=== PATIENT | male | born 1940 | race Caucasian/White ===

== ENCOUNTER 2016-06-21 08:47 | Observation (INO) | payer MEDICARE ==
[2016-06-21 09:20] LABS: ABSOLUTE LYMPHOCYTES (AUTO) 0.9 10^3/uL (0.5-4.7); ABSOLUTE MONOCYTES (AUTO) 0.9 10^3/uL (0.1-1.4); ABSOLUTE NEUT (AUTO) 11.9 10^3/uL (1.7-8.2); BASOPHILS % (AUTO) 0.2 % (0-2); HEMATOCRIT 40.6 % (37.9-51.0); HEMOGLOBIN 14.2 g/dL (13.5-17.0); LYMPHOCYTES % (AUTO) 6.4 % (13-45); MEAN CORPUSCULAR HEMOGLOBIN 29.2 pg (27.0-33.4); MEAN CORPUSCULAR HGB CONC 34.9 g/dL (32.0-36.0); MEAN CORPUSCULAR VOLUME 84 fl (80-97); MONOCYTES % (AUTO) 6.3 % (3-13); RED BLOOD COUNT 4.85 10^6/uL (4.35-5.55); RED CELL DISTRIBUTION WIDTH 13.5 % (11.5-14.0); SEGMENTED NEUTROPHILS % (AUTO) 87.1 % (42-78); WHITE BLOOD COUNT 13.7 10^3/uL (4.0-10.5)
[2016-06-21 09:22] LABS: VENOUS BLOOD BASE EXCESS -2.2 mmol/L; VENOUS BLOOD HCO3 20.9 mmol/L (20-32); VENOUS BLOOD PCO2 31.6 mmHg (35-63); VENOUS BLOOD PH 7.44 (7.30-7.42)
[2016-06-21 09:25] LABS: PROTHROMBIN TIME 15.1 SEC (11.4-15.4)
[2016-06-21 09:41] LABS: ALANINE AMINOTRANSFERASE 28 U/L (21-72); ALBUMIN 3.9 g/dL (3.5-5.0); ALKALINE PHOSPHATASE 88 U/L (38-126); ANION GAP 16 (5-19); ASPARTATE AMINO TRANSFERASE 37 U/L (17-59); BILIRUBIN,DIRECT 0.5 mg/dL (0.0-0.4); BILIRUBIN,TOTAL 2.5 mg/dL (0.2-1.3); BLOOD UREA NITROGEN 20 mg/dL (7-20); CALCIUM 8.8 mg/dL (8.4-10.2); CARBON DIOXIDE 20 mmol/L (22-30); CHLORIDE 97 mmol/L (98-107); CREATININE RESULT 1.16 mg/dL (0.52-1.25); GLUCOSE 156 mg/dL (75-110); LIPASE 26.3 U/L (23-300); MAGNESIUM 1.6 mg/dL (1.6-2.3); POTASSIUM 3.4 mmol/L (3.6-5.0); SODIUM 132.8 mmol/L (137-145); TOTAL PROTEIN 6.5 g/dL (6.3-8.2)
[2016-06-21] MEDS ORDERED: NORMAL SALINE 1000 ML 1,000 ML IV ONE (10:35)
[2016-06-21 10:59] LABS: APPEARANCE,URINE CLEAR; BILIRUBIN,URINE NEGATIVE (NEGATIVE); GLUCOSE, URINE NEGATIVE (NEGATIVE); KETONES,URINE 20 mg/dL (NEGATIVE); LEUKOCYTE ESTERASE,URINE NEGATIVE (NEGATIVE); NITRITE,URINE NEGATIVE (NEGATIVE); PROTEIN,URINE NEGATIVE (NEGATIVE); URINE SPECIFIC GRAVITY 1.005; UROBILINOGEN,URINE NEGATIVE mg/dL (<2.0)
[2016-06-21] MEDS ORDERED: IPRATROPIUM/ALBUTEROL 0.5-2.5 MG/3 ML AMPUL NEB ONE (11:03)
--- NOTE | 2016-06-21 12:23 | ER Document Report ---
ED General - General Chief Complaint: Shortness Of Breath Stated Complaint: SORTNESS OF BREATH TRAVEL OUTSIDE OF THE [place] IN LAST 30 DAYS: No - HPI Patient complains to provider of: fever shortness of breath Notes: Patient coming in for evaluation of fever shortness of breath. Patient has history COPD/asthma. States ongoing for last 4 days. Patient states he did not receive a flu shot this year. Patient also states mild nausea. Patient's tried breathing treatments at home however today worse patient denies any recent travel patient does have a fever and was given Tylenol via EMS. Upon my evaluation patient is diaphoretic having difficulty breathing however states that bring treatments given by EMS have improved his breathing status. - Related Data Allergies/Adverse Reactions: codeine [Codeine] Allergy (Verified 04/13/14 16:50) Past Medical History - Social History Smoking Status: Former Smoker Frequency of alcohol use: None Drug Abuse: None Family History: Reviewed & Not Pertinent Pulmonary Medical History: Reports: Hx Asthma GI Medical History: Reports: Hx Gastroesophageal Reflux Disease Past Surgical History: Reports: Hx Bowel Surgery - hemicolectomy, Hx Cholecystectomy - Immunizations Hx Diphtheria, Pertussis, Tetanus Vaccination: Yes Hx Pneumococcal Vaccination: 11/25/08 Review of Systems - Review of Systems Constitutional: Fever EENT: No symptoms reported Cardiovascular: No symptoms reported Respiratory: Cough, Wheezing Gastrointestinal: No symptoms reported Genitourinary: No symptoms reported Male Genitourinary: No symptoms reported Musculoskeletal: No symptoms reported Skin: No symptoms reported Hematologic/Lymphatic: No symptoms reported Neurological/Psychological: No symptoms reported -: Yes All other systems reviewed and negative Physical Exam - Vital signs Vitals: Temp Pulse Resp BP Pulse Ox 98.3 F 99 20 139/62 H 95 06/21/16 08:58 06/21/16 08:58 06/21/16 08:58 06/21/16 08:58 06/21/16 08:58 Interpretation: Febrile - General General appearance: Appears well, Alert - HEENT Head: Normocephalic, Atraumatic Eyes: Normal Pupils: PERRL - Respiratory Respiratory status: No respiratory distress Chest status: Nontender Breath sounds: Rhonchi, Wheezing Chest palpation: Normal - Cardiovascular Rhythm: Regular Heart sounds: Normal auscultation Murmur: No - Abdominal Inspection: Normal Distension: No distension Bowel sounds: Normal Tenderness: Nontender Organomegaly: No organomegaly - Back Back: Normal, Nontender - Extremities General upper extremity: Normal inspection, Nontender, Normal color, Normal ROM , Normal temperature General lower extremity: Normal inspection, Nontender, Normal color, Normal ROM , Normal temperature, Normal weight bearing. No: Elizabeth's sign - Neurological Neuro grossly intact: Yes Cognition: Normal Orientation: AAOx4 [place] Coma Scale Eye Opening: Spontaneous [place] Coma Scale Verbal: Oriented [place] Coma Scale Motor: Obeys Commands [place] Coma Scale Total: 15 Speech: Normal Motor strength normal: LUE, RUE, LLE, RLE Sensory: Normal - Psychological Associated symptoms: Normal affect, Normal mood - Skin Skin Temperature: Warm Skin Moisture: Dry Skin Color: Normal Course - Re-evaluation Re-evalutation: 06/21/16 15:01 Patient did improve however after ambulating patient still same short breaths still has coarse lung sounds is to connect therefore decision was made to admit the patient with asthma exacerbation with influenza B. 06/21/16 15:01 - Vital Signs Vital signs: Temp Pulse Resp BP Pulse Ox 98.1 F 84 20 129/57 H 97 06/21/16 14:33 06/21/16 14:33 06/21/16 14:33 06/21/16 14:33 06/21/16 14:33 - Laboratory Result Diagrams: 06/21/16 09:02 06/21/16 09:02 Laboratory results interpreted by me: 06/21/16 06/21/16 06/21/16 09:02 09:02 09:02 WBC 13.7 H Seg Neutrophils % 87.1 H Lymphocytes % 6.4 L Absolute Neutrophils 11.9 H VBG pH 7.44 H VBG pCO2 31.6 L Sodium 132.8 L Potassium 3.4 L Chloride 97 L Carbon Dioxide 20 L Glucose 156 H Total Bilirubin 2.5 H Direct Bilirubin 0.5 H Urine Ketones Urine Blood 06/21/16 10:40 WBC Seg Neutrophils % Lymphocytes % Absolute Neutrophils VBG pH VBG pCO2 Sodium Potassium Chloride Carbon Dioxide Glucose Total Bilirubin Direct Bilirubin Urine Ketones 20 H Urine Blood SMALL H Discharge - Discharge Clinical Impression: SOB (shortness of breath), COPD with acute exacerbation, Influenza due to influenza virus, type B Admitting Provider: Hospitalist - melissa/andrew Unit Admitted: Telemetry
[2016-06-21] MEDS ORDERED: ACETAMINOPHEN 325 MG TABLET PO PRN (12:26)
[2016-06-21] MEDS ORDERED: ZOLPIDEM TARTRATE 5 MG TABLET PO PRN (12:26)
[2016-06-21] MEDS ORDERED: ONDANSETRON HCL INJ/PF 4 MG/2 ML SDV IV PRN (12:26)
[2016-06-21] MEDS ORDERED: TRAMADOL HCL 50 MG TABLET PO PRN (12:33)
--- NOTE | 2016-06-21 13:31 | PDOC H&P ---
History of Present Illness Patient complains of: Shortness of breath, cough and fever over the last 4 days History of Present Illness: LINDA GAYLE III is a 75 year old male with past medical history COPD, asthma and GERD. Presents to [facility]'s emergency department this morning with complaints of increasing shortness of breath, cough, and fever up to 102. He states his symptoms began 4 days ago and has worsened over time. He has been using his rescue inhaler frequently and taking Mucinex over- the-counter. He denies any chest pain, palpitations or dyspnea. He does have generalized arthralgias and myalgias. He denies any nausea vomiting or abdominal pain. No other family members are sick at the present time. He has not been traveling outside the area. Past Medical History Cardiac Medical History: Reports: None Pulmonary Medical History: Reports: Asthma, Chronic Obstructive Pulmonary Disease (COPD), Pneumonia EENT Medical History: Reports: None Neurological Medical History: Reports: None Endocrine Medical History: Reports: None Renal/ Medical History: Reports: None Malignancy Medical History: Reports: None GI Medical History: Reports: None, Gastroesophageal Reflux Disease Musculoskeltal Medical History: Reports: None Skin Medical History: Reports: None Psychiatric Medical History: Reports: None Traumatic Medical History: Reports: None Hematology: Reports: None Infectious Medical History: Reports: None Past Surgical History Past Surgical History: Reports: Cholecystectomy Social History Information Source: Patient Lives with: Alone Smoking Status: Former Smoker Last Time Smoked: 40 years ago Frequency of Alcohol Use: Rare Hx Recreational Drug Use: No Hx Prescription Drug Abuse: No - Advance Directive Resuscitation Status: Full Code Surrogate healthcare decision maker:: daughter, Family History Family History: CAD, Hypertension Parental Family History Reviewed: Yes Children Family History Reviewed: Yes Sibling(s) Family History Reviewed.: Yes Medication/Allergy Home Medications: Asprin 81 mg PO DAILY 04/24/12 Asthmanex 220 mg IH DAILY 04/24/12 Formula Damien Plus 15 drop PO DAILY 04/24/12 Ginkgo Biloba 120 mg PO DAILY 04/24/12 Multivitamin [Multiple Vitamins] 1 tab PO DAILY 04/24/12 Natural Vitality 1 tab PO DAILY 04/24/12 [place] 3 1 tab PO DAILY 04/24/12 Omeprazole [Prilosec 40 mg Capsule] 40 mg PO DAILY 04/24/12 Servent 50 mg IH DAILY 04/24/12 Vit B6 100 mg PO DAILY 04/24/12 Vit D3 2,000 units PO DAILY 04/24/12 Vitamin [id number] Factor [Martinic] 1 each PO DAILY 04/24/12 Esomeprazole Mag Trihydrate [Nexium] 40 mg PO DAILY #30 cap 04/13/14 Tramadol HCl [Ultram] 50 mg PO Q6 #30 tablet 04/13/14 Allergies/Adverse Reactions: codeine [Codeine] Allergy (Verified 04/13/14 16:50) Review of Systems Constitutional: PRESENT: anorexia, chills, fever(s), headache(s) Eyes: PRESENT: as per HPI Ears: ABSENT: hearing changes Cardiovascular: ABSENT: chest pain, dyspnea on exertion, edema, orthropnea, palpitations Respiratory: PRESENT: cough, dyspnea, sputum Gastrointestinal: ABSENT: abdominal pain, constipation, diarrhea, hematemesis, hematochezia, nausea, vomiting Genitourinary: ABSENT: dysuria, hematuria Musculoskeletal: ABSENT: joint swelling Integumentary: ABSENT: rash, wounds Neurological: ABSENT: abnormal gait, abnormal speech, confusion, dizziness, focal weakness, syncope Psychiatric: ABSENT: anxiety, depression, homidical ideation, suicidal ideation Endocrine: ABSENT: cold intolerance, heat intolerance, polydipsia, polyuria Hematologic/Lymphatic: ABSENT: easy bleeding, easy bruising Physical Exam Vital Signs: Temp Pulse Resp BP Pulse Ox 98.0 F 99 21 H 123/66 95 06/21/16 11:54 06/21/16 08:58 06/21/16 12:00 06/21/16 12:00 06/21/16 12:00 General appearance: PRESENT: no acute distress, well-developed, well-nourished Head exam: PRESENT: atraumatic, normocephalic Eye exam: PRESENT: conjunctiva pink, EOMI, PERRLA. ABSENT: scleral icterus Ear exam: PRESENT: normal external ear exam Mouth exam: PRESENT: moist, tongue midline Neck exam: ABSENT: carotid bruit, JVD, lymphadenopathy, thyromegaly Respiratory exam: PRESENT: rhonchi, symmetrical, unlabored, wheezes Cardiovascular exam: PRESENT: RRR. ABSENT: diastolic murmur, rubs, systolic murmur Pulses: PRESENT: normal dorsalis pedis pul Vascular exam: PRESENT: normal capillary refill GI/Abdominal exam: PRESENT: normal bowel sounds, soft. ABSENT: distended, guarding, mass, organolmegaly, rebound, tenderness Rectal exam: PRESENT: deferred Extremities exam: PRESENT: full ROM. ABSENT: calf tenderness, clubbing, pedal edema Musculoskeletal exam: PRESENT: ambulatory, full ROM, normal inspection, tenderness Neurological exam: PRESENT: alert, awake, oriented to person, oriented to place , oriented to time, oriented to situation, CN II-XII grossly intact. ABSENT: motor sensory deficit Psychiatric exam: PRESENT: appropriate affect, normal mood. ABSENT: homicidal ideation, suicidal ideation Skin exam: PRESENT: dry, intact, warm. ABSENT: cyanosis, rash Results Laboratory Results: 06/21/16 09:02 06/21/16 09:02 06/21/16 06/21/16 06/21/16 09:02 09:02 09:02 WBC 13.7 H RBC 4.85 Hgb 14.2 Hct 40.6 MCV 84 MCH 29.2 MCHC 34.9 RDW 13.5 Plt Count 167 Seg Neutrophils % 87.1 H Lymphocytes % 6.4 L Monocytes % 6.3 Eosinophils % 0.0 Basophils % 0.2 Absolute Neutrophils 11.9 H Absolute Lymphocytes 0.9 Absolute Monocytes 0.9 Absolute Eosinophils 0.0 Absolute Basophils 0.0 VBG pH VBG pCO2 VBG HCO3 VBG Base Excess Sodium 132.8 L Potassium 3.4 L Chloride 97 L Carbon Dioxide 20 L Anion Gap 16 BUN 20 Creatinine 1.16 Est GFR ( Amer) > 60 Est GFR (Non-Af Amer) > 60 Glucose 156 H Lactic Acid 1.0 Calcium 8.8 Magnesium 1.6 Total Bilirubin 2.5 H AST 37 ALT 28 Alkaline Phosphatase 88 Total Protein 6.5 Albumin 3.9 Lipase 26.3 Urine Color Urine Appearance Urine pH Ur Specific [place] Urine Protein Urine Glucose (UA) Urine Ketones Urine Blood Urine Nitrite Ur Leukocyte Esterase Urine WBC (Auto) Urine RBC (Auto) 06/21/16 06/21/16 09:02 10:40 WBC RBC Hgb Hct MCV MCH MCHC RDW Plt Count Seg Neutrophils % Lymphocytes % Monocytes % Eosinophils % Basophils % Absolute Neutrophils Absolute Lymphocytes Absolute Monocytes Absolute Eosinophils Absolute Basophils VBG pH 7.44 H VBG pCO2 31.6 L VBG HCO3 20.9 VBG Base Excess -2.2 Sodium Potassium Chloride Carbon Dioxide Anion Gap BUN Creatinine Est GFR ( Amer) Est GFR (Non-Af Amer) Glucose Lactic Acid Calcium Magnesium Total Bilirubin AST ALT Alkaline Phosphatase Total Protein Albumin Lipase Urine Color YELLOW Urine Appearance CLEAR Urine pH 6.0 Ur Specific [place] 1.005 Urine Protein NEGATIVE Urine Glucose (UA) NEGATIVE Urine Ketones 20 H Urine Blood SMALL H Urine Nitrite NEGATIVE Ur Leukocyte Esterase NEGATIVE Urine WBC (Auto) 1 Urine RBC (Auto) 0 06/21/16 09:02 Troponin I 0.033 Impressions: Chest X-Ray 06/21/16 09:00 IMPRESSION: NO ACUTE RADIOGRAPHIC FINDING IN THE CHEST. Assessment & Plan - Diagnosis (1) Acute chronic obstructive pulmonary disease with respiratory distress Is this a current diagnosis for this admission?: YesPlan: Patient tested positive for influenza B and his symptoms began 4 days ago. Oxygen as needed. Tamiflu is not indicated. Chest x-ray shows no sign of pneumonia. We will continue home inhalers as well as DuoNeb nebulizer every 6 hours and prn, mucinex and IV steroids. (2) Influenza due to influenza virus, type B Is this a current diagnosis for this admission?: YesPlan: Symptomatic management, Tamiflu is not indicated due to length of patient's symptoms (3) SOB (shortness of breath) Is this a current diagnosis for this admission?: YesPlan: Oxygen, IV steroids and nebulizer treatments - Time Time Spent: 50 to 70 Minutes Critical Time spent with patient: 25-34 minutes Medications reviewed and adjusted accordingly: Yes Anticipated discharge: Home
--- NOTE | 2016-06-21 14:25 | EKG REPORT ---
SEVERITY:- OTHERWISE NORMAL ECG - SINUS RHYTHM ATRIAL PREMATURE COMPLEX : Confirmed by: Carissa Carias 21-Jun-2016 14:24:43
[2016-06-21] MEDS: METHYLPREDNISOLONE INJ 125 MG/2 ML SDV IV SCH ×2 (14:43→21:23)
[2016-06-21] MEDS: IPRATROPIUM/ALBUTEROL 0.5-2.5 MG/3 ML AMPUL NEB SCH ×2 (16:52→23:27)
[2016-06-21] MEDS: LANSOPRAZOLE 30 MG TAB.RAP.DR PO SCH (17:21)
[2016-06-21] MEDS: GUAIFENESIN 600 MG TABLET.SA PO SCH (21:23)
[2016-06-22] MEDS ORDERED: POLYVINYL ALCOHOL 1.4% OPH SOLN 15 ML OU PRN (04:51)
[2016-06-22 05:28] LABS: HEMATOCRIT 41.6 % (37.9-51.0); HEMOGLOBIN 14.6 g/dL (13.5-17.0); HGB HCT DIFFERENCE 2.2; MEAN CORPUSCULAR HEMOGLOBIN 29.6 pg (27.0-33.4); MEAN CORPUSCULAR VOLUME 85 fl (80-97); RED BLOOD COUNT 4.92 10^6/uL (4.35-5.55); RED CELL DISTRIBUTION WIDTH 13.8 % (11.5-14.0)
[2016-06-22 05:41] LABS: ANION GAP 17 (5-19); BLOOD UREA NITROGEN 19 mg/dL (7-20); CALCIUM 9.4 mg/dL (8.4-10.2); CARBON DIOXIDE 22 mmol/L (22-30); CHLORIDE 104 mmol/L (98-107); CREATININE RESULT 0.87 mg/dL (0.52-1.25); GLUCOSE 161 mg/dL (75-110); POTASSIUM 3.7 mmol/L (3.6-5.0); SODIUM 142.7 mmol/L (137-145)
[2016-06-22 05:49] LABS: BAND NEUTROPHILS % (MANUAL) 3 % (3-5); BASOPHILS % (MANUAL) 0 % (0-2); EOSINOPHILS % (MANUAL) 0 % (0-6); LYMPHOCYTES % (MANUAL) 0 % (13-45); TOTAL CELLS COUNTED 100
[2016-06-22 05:50] LABS: RBC MORPHOLOGY COMMENT NORMO-CYTIC/CHROMIC; TOXIC GRANULATION 1+; TOXIC VACUOLATION PRESENT
[2016-06-22] MEDS: LANSOPRAZOLE 30 MG TAB.RAP.DR PO SCH ×2 (06:50→17:15)
[2016-06-22] MEDS: METHYLPREDNISOLONE INJ 125 MG/2 ML SDV IV SCH ×3 (06:50→22:26)
[2016-06-22] MEDS: IPRATROPIUM/ALBUTEROL 0.5-2.5 MG/3 ML AMPUL NEB SCH ×3 (08:00→23:25)
[2016-06-22] MEDS ORDERED: ASPRIN PO SCH (10:00)
[2016-06-22] MEDS: ASPIRIN 81 MG TABLET, CHEWABLE PO SCH (10:45)
[2016-06-22] MEDS: GUAIFENESIN 600 MG TABLET.SA PO SCH ×2 (10:45→22:26)
[2016-06-22] MEDS: DOCUSATE SODIUM 100 MG CAPSULE PO SCH (10:45)
[2016-06-22] MEDS: ENOXAPARIN SODIUM INJ 40 MG/0.4 ML DISP.SYRIN SUBCUT SCH (10:46)
--- NOTE | 2016-06-22 16:26 | PDOC PROGRESS REPORT ---
Subjective Progress Note for:: 06/22/16 Subjective:: Patient seen on morning rounds. He is presently sitting out of bed bedside chair. He continues to have a harsh mostly nonproductive cough. He states this chest tightness is improved from yesterday. He denies any fever or chills overnight. He denies any nausea, abdominal pain or diarrhea. He denies significant arthralgias or myalgias. He states he did not sleep well overnight. Rest of review of systems are negative. Physical Exam Vital Signs: Temp Pulse Resp BP Pulse Ox 98.3 F 86 19 126/64 H 96 06/22/16 11:17 06/22/16 14:00 06/22/16 11:17 06/22/16 11:17 06/22/16 11:17 Intake & Output 06/21/16 06/22/16 06/23/16 06:59 06:59 06:59 Intake Total 1100 480 Output Total 400 Balance 700 480 Weight 79.5 kg Results Laboratory Results: 06/22/16 04:46 06/22/16 04:46 06/22/16 06/22/16 04:46 04:46 WBC 21.0 H RBC 4.92 Hgb 14.6 Hct 41.6 MCV 85 MCH 29.6 MCHC 35.0 RDW 13.8 Plt Count 179 Seg Neutrophils % Not Reportable Lymphocytes % Not Reportable Monocytes % Not Reportable Eosinophils % Not Reportable Basophils % Not Reportable Absolute Neutrophils Not Reportable Absolute Lymphocytes Not Reportable Absolute Monocytes Not Reportable Absolute Eosinophils Not Reportable Absolute Basophils Not Reportable Sodium 142.7 Potassium 3.7 Chloride 104 Carbon Dioxide 22 Anion Gap 17 BUN 19 Creatinine 0.87 Est GFR ( Amer) > 60 Est GFR (Non-Af Amer) > 60 Glucose 161 H Calcium 9.4 Impressions: Chest X-Ray 06/21/16 09:00 IMPRESSION: NO ACUTE RADIOGRAPHIC FINDING IN THE CHEST. Assessment & Plan - Diagnosis (1) Acute chronic obstructive pulmonary disease with respiratory distress Is this a current diagnosis for this admission?: YesPlan: Patient tested positive for influenza B and his symptoms began 4 days ago. Oxygen as needed. Tamiflu is not indicated. Chest x-ray shows no sign of pneumonia. We will continue home inhalers as well as DuoNeb nebulizer every 6 hours and prn, mucinex and IV steroids. Will continue close observation for possible pneumonia. (2) Influenza due to influenza virus, type B Is this a current diagnosis for this admission?: YesPlan: Symptomatic management, Tamiflu is not indicated due to length of patient's symptoms (3) SOB (shortness of breath) Is this a current diagnosis for this admission?: YesPlan: Oxygen, IV steroids and nebulizer treatments - Time Time Spent with patient: 25-34 minutes Critical Time spent with patient: 15-24 minutes - Inpatient Certification Based on my medical assessment, after consideration of the patient's comorbidities, presenting symptoms, or acuity I expect that the services needed warrant INPATIENT care.: Yes I certify that my determination is in accordance with my understanding of Medicare's requirements for reasonable and necessary INPATIENT services [42 CFR 412.3e].: Yes
[2016-06-22] MEDS: IPRATROPIUM/ALBUTEROL 0.5-2.5 MG/3 ML AMPUL NEB PRN (20:17)
[2016-06-22] MEDS: ZOLPIDEM TARTRATE 5 MG TABLET PO SCH (22:26)
[2016-06-23 05:58] LABS: HEMATOCRIT 39.8 % (37.9-51.0); HEMOGLOBIN 13.7 g/dL (13.5-17.0); HGB HCT DIFFERENCE 1.3; MEAN CORPUSCULAR HEMOGLOBIN 28.8 pg (27.0-33.4); MEAN CORPUSCULAR HGB CONC 34.5 g/dL (32.0-36.0); MEAN CORPUSCULAR VOLUME 84 fl (80-97); RED BLOOD COUNT 4.77 10^6/uL (4.35-5.55); RED CELL DISTRIBUTION WIDTH 14.1 % (11.5-14.0)
[2016-06-23] MEDS: LANSOPRAZOLE 30 MG TAB.RAP.DR PO SCH ×2 (06:37→17:40)
[2016-06-23] MEDS: METHYLPREDNISOLONE INJ 125 MG/2 ML SDV IV SCH ×2 (06:37→22:18)
[2016-06-23 06:40] LABS: BAND NEUTROPHILS % (MANUAL) 1 % (3-5); BASOPHILS % (MANUAL) 0 % (0-2); EOSINOPHILS % (MANUAL) 0 % (0-6); LYMPHOCYTES % (MANUAL) 1 % (13-45); TOTAL CELLS COUNTED 100
[2016-06-23 06:41] LABS: RBC MORPHOLOGY COMMENT NORMO-CYTIC/CHROMIC; TOXIC VACUOLATION PRESENT
[2016-06-23] MEDS: IPRATROPIUM/ALBUTEROL 0.5-2.5 MG/3 ML AMPUL NEB SCH ×3 (08:37→23:37)
[2016-06-23] MEDS: GUAIFENESIN 600 MG TABLET.SA PO SCH ×2 (09:05→22:18)
[2016-06-23] MEDS: ASPIRIN 81 MG TABLET, CHEWABLE PO SCH (09:05)
[2016-06-23] MEDS: ENOXAPARIN SODIUM INJ 40 MG/0.4 ML DISP.SYRIN SUBCUT SCH (09:05)
[2016-06-23] MEDS: DOCUSATE SODIUM 100 MG CAPSULE PO SCH (09:05)
[2016-06-23] MEDS ORDERED: BENZONATATE 100 MG CAPSULE PO PRN (09:36)
[2016-06-23] MEDS ORDERED: MOMETASONE FUROATE IH SCH (10:00)
[2016-06-23] MEDS ORDERED: IBUPROFEN 800 MG TABLET PO PRN (10:11)
[2016-06-23] MEDS: MULTIVITAMIN TABLET PO SCH (10:52)
[2016-06-23] MEDS: TAMSULOSIN HCL 0.4 MG CAP.SR.24H PO SCH (10:53)
[2016-06-23] MEDS ORDERED: SALMETEROL XINAFOATE DISKUS 50 MCG/1 DOSE 28 DOSE IH ONE (11:00)
[2016-06-23] MEDS ORDERED: CEFUROXIME 500 MG TABLET PO ONE (11:00)
--- NOTE | 2016-06-23 13:39 | PDOC PROGRESS REPORT ---
Subjective Progress Note for:: 06/23/16 - Subjective:: Patient seen on morning rounds. He is presently sitting out of bed bedside chair. He continues to have a harsh mostly nonproductive cough. He states this chest tightness is improved from yesterday. He denies any fever or chills overnight. He denies any nausea, abdominal pain or diarrhea. He denies significant arthralgias or myalgias. He states he did not sleep well overnight. Rest of review of systems are negative. Physical Exam Vital Signs: Temp Pulse Resp BP Pulse Ox 97.4 F 93 18 125/55 L 96 06/23/16 07:25 06/23/16 08:39 06/23/16 08:39 06/23/16 07:25 06/23/16 08:39 Intake & Output 06/22/16 06/23/16 06/24/16 06:59 06:59 06:59 Intake Total 1100 1270 Output Total 400 1500 Balance 700 -230 Weight 79.5 kg 77.9 kg General appearance: PRESENT: no acute distress, well-developed, well-nourished Head exam: PRESENT: atraumatic, normocephalic Eye exam: PRESENT: conjunctiva pink, EOMI, PERRLA. ABSENT: scleral icterus Ear exam: PRESENT: normal external ear exam Mouth exam: PRESENT: moist, tongue midline Neck exam: ABSENT: carotid bruit, JVD, lymphadenopathy, thyromegaly Respiratory exam: PRESENT: decreased breath sounds, rhonchi, symmetrical, unlabored Cardiovascular exam: PRESENT: RRR. ABSENT: diastolic murmur, rubs, systolic murmur Pulses: PRESENT: normal dorsalis pedis pul Vascular exam: PRESENT: normal capillary refill GI/Abdominal exam: PRESENT: normal bowel sounds, soft. ABSENT: distended, guarding, mass, organolmegaly, rebound, tenderness Rectal exam: PRESENT: deferred Extremities exam: PRESENT: full ROM. ABSENT: calf tenderness, clubbing, pedal edema Musculoskeletal exam: PRESENT: ambulatory, full ROM, normal inspection Neurological exam: PRESENT: alert, awake, oriented to person, oriented to place , oriented to time, oriented to situation, CN II-XII grossly intact. ABSENT: motor sensory deficit Psychiatric exam: PRESENT: appropriate affect, normal mood. ABSENT: homicidal ideation, suicidal ideation Skin exam: PRESENT: dry, intact, warm. ABSENT: cyanosis, rash Results Laboratory Results: 06/23/16 05:00 06/22/16 04:46 06/23/16 05:00 WBC 19.0 H RBC 4.77 Hgb 13.7 Hct 39.8 MCV 84 MCH 28.8 MCHC 34.5 RDW 14.1 H Plt Count 232 Seg Neutrophils % Not Reportable Lymphocytes % Not Reportable Monocytes % Not Reportable Eosinophils % Not Reportable Basophils % Not Reportable Absolute Neutrophils Not Reportable Absolute Lymphocytes Not Reportable Absolute Monocytes Not Reportable Absolute Eosinophils Not Reportable Absolute Basophils Not Reportable 06/21/16 17:25 Sputum Gram Stain - Final 06/21/16 17:25 Sputum Sputum Culture - Final NORMAL MERLE Impressions: Chest X-Ray 06/21/16 09:00 IMPRESSION: NO ACUTE RADIOGRAPHIC FINDING IN THE CHEST. Assessment & Plan - Diagnosis (1) Acute chronic obstructive pulmonary disease with respiratory distress Is this a current diagnosis for this admission?: YesPlan: Patient tested positive for influenza B and his symptoms began 4 days ago. Oxygen as needed. Tamiflu is not indicated. Chest x-ray shows no sign of pneumonia. We will continue home inhalers as well as DuoNeb nebulizer every 6 hours and prn, mucinex and IV steroids. Will continue close observation for possible pneumonia. (2) Influenza due to influenza virus, type B Is this a current diagnosis for this admission?: YesPlan: Symptomatic management, Tamiflu is not indicated due to length of patient's symptoms (3) SOB (shortness of breath) Is this a current diagnosis for this admission?: YesPlan: Oxygen, IV steroids and nebulizer treatments - Time Time Spent with patient: 25-34 minutes Critical Time spent with patient: 15-24 minutes Medications reviewed and adjusted accordingly: Yes Anticipated discharge: Home Within: within 48 hours
[2016-06-23] MEDS ORDERED: SALMETEROL XINAFOATE DISKUS 50 MCG/1 DOSE 28 DOSE IH SCH (22:00)
[2016-06-23] MEDS: CEFUROXIME 500 MG TABLET PO SCH (22:18)
[2016-06-23] MEDS: ZOLPIDEM TARTRATE 5 MG TABLET PO SCH (22:18)
[2016-06-24] MEDS: LANSOPRAZOLE 30 MG TAB.RAP.DR PO SCH ×2 (06:00→16:37)
[2016-06-24] MEDS: ENOXAPARIN SODIUM INJ 40 MG/0.4 ML DISP.SYRIN SUBCUT SCH (07:59)
[2016-06-24] MEDS: IPRATROPIUM/ALBUTEROL 0.5-2.5 MG/3 ML AMPUL NEB SCH ×3 (08:18→23:44)
[2016-06-24] MEDS ORDERED: NA PHOS,M-B/NA PHOS,DI-BA (ADULT) 133 ML ENEMA PR PRN (10:16)
[2016-06-24] MEDS: TAMSULOSIN HCL 0.4 MG CAP.SR.24H PO SCH (11:10)
[2016-06-24] MEDS: ASPIRIN 81 MG TABLET, ENT COATED PO SCH (11:10)
[2016-06-24] MEDS: GUAIFENESIN 600 MG TABLET.SA PO SCH ×2 (11:10→21:26)
[2016-06-24] MEDS: DOCUSATE SODIUM 100 MG CAPSULE PO SCH (11:10)
[2016-06-24] MEDS: MULTIVITAMIN TABLET PO SCH (11:11)
[2016-06-24] MEDS: CEFUROXIME 500 MG TABLET PO SCH ×2 (11:11→21:26)
[2016-06-24] MEDS: METHYLPREDNISOLONE INJ 125 MG/2 ML SDV IV SCH ×2 (11:13→21:26)
[2016-06-24] MEDS ORDERED: BUDESONIDE/FORMOTEROL 160-4.5 MCG 60 PUFF/6 GM MDI IH ONE (11:30)
[2016-06-24] MEDS: IPRATROPIUM/ALBUTEROL 0.5-2.5 MG/3 ML AMPUL NEB PRN (11:59)
--- NOTE | 2016-06-24 12:57 | PDOC PROGRESS REPORT ---
Subjective Progress Note for:: 06/24/16 Subjective:: Patient seen on morning rounds. He is presently sitting out of bed bedside chair. He continues to have a harsh mostly nonproductive cough but it is lessening. He states this chest tightness is improved from yesterday. He denies any fever or chills overnight. He denies any nausea, abdominal pain or diarrhea. He denies significant arthralgias or myalgias. Rest of review of systems are negative. Physical Exam Vital Signs: Temp Pulse Resp BP Pulse Ox 97.4 F 80 18 130/55 H 96 06/24/16 11:13 06/24/16 12:01 06/24/16 12:01 06/24/16 11:05 06/24/16 12:01 Intake & Output 06/23/16 06/24/16 06/25/16 06:59 06:59 06:59 Intake Total 1270 1700 Output Total 1500 1250 Balance -230 450 Weight 77.9 kg 79.3 kg General appearance: PRESENT: no acute distress, well-developed, well-nourished Head exam: PRESENT: atraumatic, normocephalic Eye exam: PRESENT: conjunctiva pink, EOMI, PERRLA. ABSENT: scleral icterus Ear exam: PRESENT: normal external ear exam Mouth exam: PRESENT: moist, tongue midline Neck exam: ABSENT: carotid bruit, JVD, lymphadenopathy, thyromegaly Respiratory exam: PRESENT: decreased breath sounds, rhonchi, symmetrical, unlabored Cardiovascular exam: PRESENT: RRR. ABSENT: diastolic murmur, rubs, systolic murmur Pulses: PRESENT: normal dorsalis pedis pul Vascular exam: PRESENT: normal capillary refill GI/Abdominal exam: PRESENT: normal bowel sounds, soft. ABSENT: distended, guarding, mass, organolmegaly, rebound, tenderness Rectal exam: PRESENT: deferred Extremities exam: PRESENT: full ROM. ABSENT: calf tenderness, clubbing, pedal edema Neurological exam: PRESENT: alert, awake, oriented to person, oriented to place , oriented to time, oriented to situation, CN II-XII grossly intact. ABSENT: motor sensory deficit Psychiatric exam: PRESENT: appropriate affect, normal mood. ABSENT: homicidal ideation, suicidal ideation Skin exam: PRESENT: dry, intact, warm. ABSENT: cyanosis, rash Results Laboratory Results: 06/23/16 05:00 04/28/17 04:46 06/21/16 17:25 Sputum Gram Stain - Final 06/21/16 17:25 Sputum Sputum Culture - Final NORMAL MERLE Impressions: Chest X-Ray 06/24/16 00:00 IMPRESSION: Minimal left basilar opacity as above. Suspect mild subsegmental atelectasis. Assessment & Plan - Diagnosis (1) Acute chronic obstructive pulmonary disease with respiratory distress Is this a current diagnosis for this admission?: YesPlan: Patient tested positive for influenza B and his symptoms began 4 days ago. Oxygen as needed. Tamiflu is not indicated. Chest x-ray shows no sign of pneumonia. We will continue home inhalers as well as DuoNeb nebulizer every 6 hours and prn, mucinex and IV steroids. Will continue close observation for possible pneumonia. (2) Influenza due to influenza virus, type B Is this a current diagnosis for this admission?: YesPlan: Symptomatic management, Tamiflu is not indicated due to length of patient's symptoms (3) SOB (shortness of breath) Is this a current diagnosis for this admission?: YesPlan: Oxygen, IV steroids and nebulizer treatments - Time Time Spent with patient: 25-34 minutes Critical Time spent with patient: 15-24 minutes Medications reviewed and adjusted accordingly: Yes Anticipated discharge: Home with Homehealth
[2016-06-24] MEDS: BUDESONIDE/FORMOTEROL 160-4.5 MCG 60 PUFF/6 GM MDI IH SCH (21:26)
[2016-06-24] MEDS: ZOLPIDEM TARTRATE 5 MG TABLET PO SCH (21:27)
[2016-06-24] MEDS ORDERED: MONTELUKAST SODIUM 10 MG TABLET PO SCH (22:00)
[2016-06-25] MEDS: LANSOPRAZOLE 30 MG TAB.RAP.DR PO SCH (05:34)
[2016-06-25] MEDS: ENOXAPARIN SODIUM INJ 40 MG/0.4 ML DISP.SYRIN SUBCUT SCH (08:24)
[2016-06-25] MEDS: IPRATROPIUM/ALBUTEROL 0.5-2.5 MG/3 ML AMPUL NEB SCH (08:43)
[2016-06-25] MEDS: DOCUSATE SODIUM 100 MG CAPSULE PO SCH (09:37)
[2016-06-25] MEDS: MULTIVITAMIN TABLET PO SCH (09:37)
[2016-06-25] MEDS: GUAIFENESIN 600 MG TABLET.SA PO SCH (09:37)
[2016-06-25] MEDS: ASPIRIN 81 MG TABLET, ENT COATED PO SCH (09:37)
[2016-06-25] MEDS: BUDESONIDE/FORMOTEROL 160-4.5 MCG 60 PUFF/6 GM MDI IH SCH (09:38)
[2016-06-25] MEDS: CEFUROXIME 500 MG TABLET PO SCH (09:38)
[2016-06-25] MEDS: TAMSULOSIN HCL 0.4 MG CAP.SR.24H PO SCH (09:38)
[2016-06-25] MEDS: METHYLPREDNISOLONE INJ 125 MG/2 ML SDV IV SCH (09:38)
[2016-06-25] MEDS ORDERED: POLYETHYLENE GLYCOL 3350 POWDER 17 GM/1 PACKET PO SCH (10:00)
[2016-06-25] MEDS ORDERED: FLUTICASONE NASAL SPRAY 50 MCG/SPRY 120 SPRAY/16 GM NASL SCH (10:00)
[2016-06-25 11:51] VITALS: BP 130/61
[2016-06-25] MEDS ORDERED: ATORVASTATIN CALCIUM 10 MG TABLET PO SCH (18:00)
--- NOTE | 2016-07-03 10:17 | PDOC DISCHARGE SUMMARY ---
General - Admit/Disc Date/PCP Admission Date/Primary Care Provider: 06/21/16 12:27 Discharge Date: 06/25/16 - Discharge Diagnosis (1) Acute chronic obstructive pulmonary disease with respiratory distress Is this a current diagnosis for this admission?: YesSummary: Resolved, no further hypoxia (2) Influenza due to influenza virus, type B Is this a current diagnosis for this admission?: YesSummary: Resolving (3) SOB (shortness of breath) Is this a current diagnosis for this admission?: YesSummary: Improved. Will arrange follow up with pulmonary - Additional Information Resuscitation Status: Full Code Discharge Diet: Regular Discharge Activity: Activity As Tolerated, Balance Activity w/Rest Home Medications: Aspirin [Ecotrin 81 mg EC Tablet] 81 mg PO DAILY 06/22/16 Meclizine HCl [Antivert 25 mg Tablet] 25 mg PO DAILYP PRN 06/22/16 Multivitamin [Daily Multiple Vitamin] 1 tab PO DAILY 06/22/16 Omeprazole 40 mg PO DAILY 06/22/16 Tamsulosin HCl [Flomax 0.4 mg Cap.sr] 0.4 mg PO DAILY 06/22/16 Acetaminophen [Tylenol 325 mg Tablet] 650 mg PO Q4HP PRN tablet 06/25/16 Atorvastatin Calcium 10 mg PO QPM 06/25/16 Benzonatate [Tessalon Perles 100 mg Capsule] 100 mg PO Q8HP PRN #30 capsule 03/13 Budesonide/Formoterol Fumarate [Symbicort HFA 160-4.5 mcg Inhaler 6 gm] 2 puff IH Q12 #1 inhaler 06/25/16 Cefuroxime Axetil [Ceftin 500 mg Tablet] 500 mg PO Q12 #16 tablet 06/25/16 Fluticasone Propionate [Flonase Nasal [place] 50 Mcg/Iron Station 16 gm] 2 spray NASL DAILY spray.pump 06/25/16 Guaifenesin [Mucinex Sr 600 mg Tablet.sa] 1,200 mg PO Q12 tablet.sa 06/25/16 Montelukast Sodium [Singulair 10 mg Tablet] 10 mg PO QHS #30 tablet 06/25/16 Prednisone [Deltasone 20 mg Tablet] 20 mg PO BID #10 tablet 06/25/16 History of Present Illness Patient complains of: Shortness of breath and cough History of Present Illness: LINDA GAYLE III is a 75 year old male with past medical history COPD, asthma and GERD. Presents to [facility] emergency department this morning with complaints of increasing shortness of breath, cough, and fever up to 102. He states his symptoms began 4 days ago and has worsened over time. He has been using his rescue inhaler frequently and taking Mucinex over- the-counter. He denies any chest pain, palpitations or dyspnea. He does have generalized arthralgias and myalgias. He denies any nausea vomiting or abdominal pain. No other family members are sick at the present time. He has not been traveling outside the area. Hospital Course Hospital Course: Patient was admitted to the hospitalist's service on telemetry. He was started on IV steroids and nebulizer treatments for his acute respiratory distress secondary to asthma. His cough improved over the next 3 days. He was able to be weaned from the oxygen after 24 hrs. He had increased congestion and was started on empiric broad spectrum antibiotics. Today he feels ready for discharge. Physical Exam Vital Signs: Temp Pulse Resp BP Pulse Ox 97.7 F 70 18 130/61 H 96 06/25/16 11:26 06/25/16 11:26 06/25/16 11:26 06/25/16 11:26 06/25/16 11:26 Intake & Output 06/24/16 06/25/16 06/26/16 06:59 06:59 06:59 Intake Total 1700 1245 Output Total 1250 Balance 450 1245 Weight 79.3 kg 79.4 kg General appearance: PRESENT: no acute distress, well-developed, well-nourished Head exam: PRESENT: atraumatic, normocephalic Eye exam: PRESENT: conjunctiva pink, EOMI, PERRLA. ABSENT: scleral icterus Ear exam: PRESENT: normal external ear exam Mouth exam: PRESENT: moist, tongue midline Neck exam: ABSENT: carotid bruit, JVD, lymphadenopathy, thyromegaly Respiratory exam: PRESENT: clear to auscultation [place]. ABSENT: rales, rhonchi, wheezes Cardiovascular exam: PRESENT: RRR. ABSENT: diastolic murmur, rubs, systolic murmur Pulses: PRESENT: normal dorsalis pedis pul Vascular exam: PRESENT: normal capillary refill GI/Abdominal exam: PRESENT: normal bowel sounds, soft. ABSENT: distended, guarding, mass, organolmegaly, rebound, tenderness Rectal exam: PRESENT: deferred Extremities exam: PRESENT: full ROM. ABSENT: calf tenderness, clubbing, pedal edema Neurological exam: PRESENT: alert, awake, oriented to person, oriented to place , oriented to time, oriented to situation, CN II-XII grossly intact. ABSENT: motor sensory deficit Skin exam: PRESENT: dry, intact, warm. ABSENT: cyanosis, rash Results Laboratory Results: 06/23/16 05:00 06/22/16 04:46 Impressions: Chest X-Ray 06/24/16 00:00 IMPRESSION: Minimal left basilar opacity as above. Suspect mild subsegmental atelectasis. Qualifiers PATEINT BEING DISCHARGED WITH ANY OF THE FOLLOWING DIAGNOSIS?: No Plan Discharge Plan: Home with family Time Spent: Less than 30 Minutes
== END 2016-06-25 13:00 | disposition home or self-care (01) ==
LOC: ER 08:47 → EH 12:27 → INTOOBSV 12:27 → UNDOADMIN 12:33 → EH 12:33 → 4S 13:33 → EH 13:33
PROVIDERS: ADMIT Emergency Medicine; ATTEND Emergency Medicine
PROC: 3E0F7GC Introduction of Other Therapeutic Substance into Respiratory Tract, Via Natural or Artificial Opening (ICD-10-PCS; principal; 2016-06-21)
DX: J44.9 Chronic obstructive pulmonary disease, unspecified (principal); R06.00 Dyspnea, unspecified; J10.1 Influenza due to other identified influenza virus with other respiratory manifestations; R06.02 Shortness of breath; R09.02 Hypoxemia; K21.9 Gastro-esophageal reflux disease without esophagitis; M25.50 Pain in unspecified joint; M79.1 Myalgia; Z79.82 Long term (current) use of aspirin; Z79.899 Other long term (current) drug therapy; Z87.891 Personal history of nicotine dependence; Z90.49 Acquired absence of other specified parts of digestive tract; Z82.49 Family history of ischemic heart disease and other diseases of the circulatory system; Z79.891 Long term (current) use of opiate analgesic
CPT/HCPCS: 93005; 94640 ×7; 99285; 96360; 36415 ×3; 87040; 87070; 87086; 87205; 83690; 83735; 85025 ×3; 85610; 80048; 80053; 81001; 84484; 82803; 83605; 87804; 71020; 71010; 93010; G0378 ×4; A9270 ×40; J3490 ×9; J2930 ×5; J1650 ×4; J7030; J7620

== ENCOUNTER 2018-12-26 00:21 | Emergency (ER) | payer OTHER, MEDICARE ==
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
[2018-12-26 05:43] VITALS: BP 108/60
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
--- NOTE | 2018-12-26 06:39 | EKG REPORT ---
SEVERITY:- OTHERWISE NORMAL ECG - SINUS RHYTHM BORDERLINE LEFT AXIS DEVIATION : Confirmed by: David Santana MD 26-Dec-2018 06:39:33
== END 2018-12-26 08:41 | disposition left against medical advice (07) ==
LOC: ER 00:21
DX: Z53.21 Procedure and treatment not carried out due to patient leaving prior to being seen by health care provider (principal)
CPT/HCPCS: 70450; 71046; 72125; 93005; 93010